=== PATIENT | male | born 1980 | race Caucasian/White ===

== ENCOUNTER → 2020-05-12 09:37 | Outpatient (BNVA) | payer OTHER, SELFPAY | PROVIDERS: Family Provider Family Medicine Adult Medicine; PCP Emergency Medicine Emergency Medical Services; Visit Provider Family Medicine | DX: Z01.812 Encounter for preprocedural laboratory examination (principal); Z20.828 Contact with and (suspected) exposure to other viral communicable diseases | CPT/HCPCS: 87635 ==

== ENCOUNTER 2023-07-26 14:30 | Outpatient (CLI) | payer OTHER, SELFPAY | END 2023-07-26 14:31 | disposition home or self-care (01) | LOC: SLEEP 07-27 08:38 | PROVIDERS: Family Provider Family Medicine Adult Medicine; PCP Emergency Medicine Emergency Medical Services; Visit Provider Emergency Medicine Emergency Medical Services | DX: G47.33 Obstructive sleep apnea (adult) (pediatric) (principal); R06.83 Snoring; R40.0 Somnolence | CPT/HCPCS: G0399 ==

== ENCOUNTER 2023-08-16 20:00 | Outpatient (CLI) | payer OTHER, SELFPAY | END 2023-08-16 20:01 | disposition home or self-care (01) | LOC: SLEEP 08-17 06:06 | PROVIDERS: Family Provider Family Medicine Adult Medicine; PCP Emergency Medicine Emergency Medical Services; Visit Provider Emergency Medicine Emergency Medical Services | DX: G47.33 Obstructive sleep apnea (adult) (pediatric) (principal) | CPT/HCPCS: 95811 ==

== ENCOUNTER 2024-04-25 07:26 | Outpatient (CLI) | payer OTHER, SELFPAY ==
--- NOTE | 2024-04-25 07:31 | US_ITS ---
WS: [id number] RIGHT UPPER QUADRANT ULTRASOUND HISTORY: ELEVATED LIVER ENZYMES/ABDOMINAL PAIN COMPARISON: None available. Liver: 17.0 cm in length. Heterogeneous dense liver. Liver is measuring top normal size. There is a c hange in echogenicity in the posterior liver which is probably an area of fatty sparing. No displacem ent of the vessels. Portal Vein: Normal hepatopetal flow with monophasic waveform. Gallbladder: Normally distended gallbladder with no stones or wall thickening. CBD: 0.3 cm Pancreas: Not visualized. Right kidney: 10.3 cm in length. Normal size and echogenicity. No hydronephrosis or mass. Aorta and IVC: Unremarkable abdominal aorta and IVC. No ascites. US/US abdomen limited [id number] IMPRESSION: 1. Heterogeneous liver. Changes of echogenicity throughout the liver. There ar e areas of increased echogenicity and decreased echogenicity. Most likely due t o areas of hepatic steatosis with areas of sparing. Recommend follow-up CT abdo men with IV contrast to better evaluate the liver. 2. Negative gallbladder.
== END 2024-04-25 07:27 | disposition home or self-care (01) ==
LOC: RAD 07:28
PROVIDERS: Family Provider Family Medicine Adult Medicine; PCP Family Medicine; Visit Provider Family Medicine
DX: R10.9 Unspecified abdominal pain (principal); R74.01 Elevation of levels of liver transaminase levels
CPT/HCPCS: 76705